=== PATIENT | female | born 1980 | race Caucasian/White ===

== ENCOUNTER 2017-05-12 16:45 | Emergency (ER) | payer SELFPAY | END 2017-05-12 17:23 | disposition home or self-care (01) | LOC: MADERS 16:45 | DX: J45.909 Unspecified asthma, uncomplicated (principal); B34.9 Viral infection, unspecified; F17.210 Nicotine dependence, cigarettes, uncomplicated; F31.9 Bipolar disorder, unspecified | CPT/HCPCS: 99283 ==

== ENCOUNTER 2017-09-06 18:24 | Emergency (ER) | payer SELFPAY ==
[2017-09-06] MEDS ORDERED: Cyclobenzaprine 10 MG TAB ONE ×2 (19:35→19:42)
[2017-09-06] MEDS ORDERED: Dexamethasone 4 MG TAB ONE (19:35)
[2017-09-06] MEDS ORDERED: Ibuprofen 800 MG TAB ONE (19:36)
[2017-09-06] MEDS ORDERED: Acetaminophen/Codeine 30-300mg Tablet ONE (19:41)
== END 2017-09-06 19:45 | disposition home or self-care (01) ==
LOC: MADERS 18:24
DX: M54.41 Lumbago with sciatica, right side (principal); J45.909 Unspecified asthma, uncomplicated; F17.210 Nicotine dependence, cigarettes, uncomplicated
CPT/HCPCS: 99283; J8540

== ENCOUNTER 2017-11-09 12:53 | Emergency (ER) | payer SELFPAY ==
[2017-11-09] MEDS ORDERED: diphenhydrAMINE 25 MG CAP ONE (13:20)
[2017-11-09] MEDS ORDERED: Famotidine 20 MG TAB ONE (13:20)
[2017-11-09] MEDS ORDERED: Dexamethasone 4 MG TAB ONE (13:20)
== END 2017-11-09 13:35 | disposition home or self-care (01) ==
LOC: MADERS 12:53
DX: T63.461A Toxic effect of venom of wasps, accidental (unintentional), initial encounter (principal); J45.909 Unspecified asthma, uncomplicated; F17.210 Nicotine dependence, cigarettes, uncomplicated; F31.9 Bipolar disorder, unspecified
CPT/HCPCS: 99282; J8540

== ENCOUNTER 2018-03-05 19:50 | Emergency (ER) | payer SELFPAY ==
[2018-03-05] MEDS ORDERED: Ibuprofen 600 MG TAB ONE (20:08)
== END 2018-03-05 20:10 | disposition home or self-care (01) ==
LOC: MADERS 19:50
DX: J20.9 Acute bronchitis, unspecified (principal); J45.909 Unspecified asthma, uncomplicated; F31.9 Bipolar disorder, unspecified; F17.210 Nicotine dependence, cigarettes, uncomplicated
CPT/HCPCS: 99406

== ENCOUNTER 2018-06-11 15:19 | Emergency (ER) | payer SELFPAY | END 2018-06-11 17:19 | disposition home or self-care (01) | LOC: MADERS 15:19 | DX: L25.9 Unspecified contact dermatitis, unspecified cause (principal); J45.909 Unspecified asthma, uncomplicated; F17.210 Nicotine dependence, cigarettes, uncomplicated; F31.9 Bipolar disorder, unspecified | CPT/HCPCS: 99282 ==

== ENCOUNTER 2020-06-14 15:28 | Emergency (ER) | payer OTHER, SELFPAY ==
[2020-06-15 16:08] LABS: SARS-CoV-2 PCR by NAA Not Detected (NotDetected)
== END 2020-06-14 16:23 | disposition home or self-care (01) ==
LOC: MADERS 15:28
DX: J44.1 Chronic obstructive pulmonary disease with (acute) exacerbation (principal); Z20.822 Contact with and (suspected) exposure to COVID-19; F17.210 Nicotine dependence, cigarettes, uncomplicated
CPT/HCPCS: 87635; 99406; U0003; U0005

== ENCOUNTER 2020-06-26 14:59 | Emergency (ER) | payer OTHER ==
[2020-06-26] MEDS ORDERED: predniSONE 20 MG TAB ONE (15:57)
== END 2020-06-26 16:30 | disposition home or self-care (01) ==
LOC: MADERS 14:59
DX: M72.2 Plantar fascial fibromatosis (principal); J45.909 Unspecified asthma, uncomplicated; F17.210 Nicotine dependence, cigarettes, uncomplicated
CPT/HCPCS: J7512

== ENCOUNTER 2020-11-15 15:51 | Emergency (ER) | payer OTHER ==
[2020-11-16 14:05] LABS: SARS-CoV-2 PCR by NAA DETECTED (NotDetected)
== END 2020-11-15 17:25 | disposition home or self-care (01) ==
LOC: MADERS 15:51
DX: U07.1 COVID-19 (principal); J02.9 Acute pharyngitis, unspecified; J45.909 Unspecified asthma, uncomplicated; F17.210 Nicotine dependence, cigarettes, uncomplicated
CPT/HCPCS: 71045; 87804; U0003; U0005